=== PATIENT | female | born 1950 | race Caucasian/White ===

== ENCOUNTER → 2017-07-26 | Outpatient (CLI) | payer OTHER | LOC: FIMAGING 10:44 | PROVIDERS: ATTEND Internal Medicine | DX: Z13.820 Encounter for screening for osteoporosis (principal); M85.80 Other specified disorders of bone density and structure, unspecified site ==

== ENCOUNTER → 2017-08-09 | Outpatient (CLI) | payer OTHER ==
[~2017-08-09] MED LIST: IOPAMIDOL (ISOVUE-300) 100 ML BTL ONE
== END ==
LOC: FIMAGING 11:41
PROVIDERS: ATTEND Internal Medicine
DX: R59.0 Localized enlarged lymph nodes (principal); R18.8 Other ascites; R91.1 Solitary pulmonary nodule; K57.90 Diverticulosis of intestine, part unspecified, without perforation or abscess without bleeding
CPT/HCPCS: 74177; Q9967

== ENCOUNTER → 2017-08-16 | Outpatient (CLI) | payer OTHER ==
[~2017-08-16] MED LIST changes: -IOPAMIDOL (ISOVUE-300) 100 ML BTL ONE; +LIDOCAINE 1% 300 MG/30 ML SDV ONE
== END ==
LOC: FIMAGING 10:52
PROVIDERS: ATTEND Internal Medicine
PROC: 07BJ3ZX Excision of Left Inguinal Lymphatic, Percutaneous Approach, Diagnostic (ICD-10-PCS; principal; 2017-08-16)
DX: R59.0 Localized enlarged lymph nodes (principal)
CPT/HCPCS: 88184-90; 88185-91

== ENCOUNTER → 2017-09-12 | Outpatient (CLI) | payer OTHER | LOC: FIMAGING 11:19 | PROVIDERS: ATTEND Internal Medicine Hematology & Oncology | DX: K59.00 Constipation, unspecified (principal); M46.96 Unspecified inflammatory spondylopathy, lumbar region; M46.97 Unspecified inflammatory spondylopathy, lumbosacral region; C91.10 Chronic lymphocytic leukemia of B-cell type not having achieved remission ==

== ENCOUNTER → 2017-09-16 | Outpatient (CLI) | payer OTHER | LOC: FIMAGING 11:27 | PROVIDERS: ATTEND Internal Medicine Hematology & Oncology | PROC: 0W9G3ZX Drainage of Peritoneal Cavity, Percutaneous Approach, Diagnostic (ICD-10-PCS; principal; 2017-09-16) | DX: R18.8 Other ascites (principal); C91.10 Chronic lymphocytic leukemia of B-cell type not having achieved remission ==

== ENCOUNTER → 2017-11-19 | Outpatient (CLI) | payer OTHER | LOC: FIMAGING 07:57 | DX: R18.8 Other ascites (principal); C91.10 Chronic lymphocytic leukemia of B-cell type not having achieved remission; Z85.3 Personal history of malignant neoplasm of breast ==

== ENCOUNTER → 2017-12-02 | Outpatient (CLI) | payer OTHER | LOC: FIMAGING 09:41 | PROVIDERS: ATTEND Internal Medicine Gastroenterology | PROC: CF141ZZ Planar Nuclear Medicine Imaging of Gallbladder using Technetium 99m (Tc-99m) (ICD-10-PCS; principal; 2017-12-02) | DX: R10.9 Unspecified abdominal pain (principal) | CPT/HCPCS: 78227; A9537 ==

== ENCOUNTER → 2017-12-12 | Outpatient (CLI) | payer OTHER ==
[~2017-12-12] MED LIST changes: +IOPAMIDOL (ISOVUE-300) 100 ML BTL ONE; -LIDOCAINE 1% 300 MG/30 ML SDV ONE
== END ==
LOC: FIMAGING 09:55
PROVIDERS: ATTEND Internal Medicine Gastroenterology
DX: R18.8 Other ascites (principal); R59.0 Localized enlarged lymph nodes; K82.9 Disease of gallbladder, unspecified
CPT/HCPCS: 74177; Q9967

== ENCOUNTER → 2017-12-18 | Outpatient (CLI) | payer OTHER ==
[~2017-12-18] MED LIST changes: -IOPAMIDOL (ISOVUE-300) 100 ML BTL ONE; +LIDOCAINE 1% 300 MG/30 ML SDV ONE
== END ==
LOC: FIMAGING 09:25
PROVIDERS: ATTEND Internal Medicine Gastroenterology
PROC: 0W9F30Z Drainage of Abdominal Wall with Drainage Device, Percutaneous Approach (ICD-10-PCS; principal; 2017-12-18)
DX: R18.8 Other ascites (principal)

== ENCOUNTER 2017-12-24 11:32 | Emergency (ER) | payer OTHER ==
--- NOTE | 2017-12-24 12:44 | EDPHY ---
H & P Time Seen by Provider: 12/24/17 12:14 HPI/ROS: Chief complaint. Left leg swelling HPI. A 67-year-old female left leg swelling for the past 2 weeks. She has bilateral leg swelling but the left is more swollen. Some mid left thigh discomfort. No chest discomfort or shortness of breath. No fever cough. No history of PE or DVT. Patient had an outpatient ultrasound today by her senior solutions workflow consultant and it shows a DVT. Patient is referred to our department for treatment ROS Constitutional. no fever/chills, no weakness Eyes. no problems with vision ENT. no sore throat, no nasal drainage Cardiovascular. no chest pain Respiratory. no shortness of breath, no cough Abdominal. no abdominal pain, no nausea/vomiting, no diarrhea . no problems urinating MS. Left lower extremity pain and swelling Skin. no rash Lymph. no swollen glands Neuro. no headache, no dizziness, no difficulty walking or with speech Past Medical/Surgical History: Leukemia Social History: Single, nonsmoker, no alcohol Smoking Status: Former smoker Physical Exam: General Appearance: Alert well-developed female mild distress vital signs stable Eyes: Pupils equal and round no pallor or injection. ENT, Mouth: Mucous membranes are moist. Respiratory: There are no retractions, lungs are clear to auscultation. Cardiovascular: Regular rate and rhythm. Gastrointestinal: Abdomen is soft and nontender, no masses, bowel sounds normal. Neurological: Awake and alert, sensory and motor exams grossly normal. Skin: Warm and dry, no rashes. Musculoskeletal: Neck is supple nontender. Extremities left leg is swollen. Good pulses. Mild tenderness to palpation medial left thigh. Psychiatric: Patient is oriented X 3, there is no agitation. Constitutional: Initial Vital Signs Temperature (C) 36.6 C 12/24/17 11:38 Heart Rate 70 12/24/17 11:38 Respiratory Rate 16 12/24/17 11:38 Blood Pressure 102/78 12/24/17 11:38 O2 Sat (%) 97 12/24/17 11:38 O2 Delivery Mode Room Air Allergies/Adverse Reactions: adhesive tape Allergy (Intermediate, Verified 12/24/17 11:37) Hives scallops Allergy (Severe, Uncoded 12/24/17 11:37) ANTIBIOTICS Allergy (Unknown, Uncoded 12/24/17 11:37) CODIENE Allergy (Unknown, Uncoded 12/24/17 11:37) PCN Allergy (Unknown, Uncoded 12/24/17 11:37) Home Medications: Medication Instructions Recorded Aspirin 12/24/17 Atorvastatin Calcium 12/24/17 Citalopram 12/24/17 Co Q-10 12/24/17 HCTZ (*) 12/24/17 Rivaroxaban [Xarelto 15mg (*)] 15 mg PO BID #42 tab 12/24/17 Vitamin D3 12/24/17 Medical Decision Making - Diagnostics Imaging Results: Imaging Impressions Extremity Venous Study 12/24/17 10:15 Impression: 1. Short segment of nonocclusive deep venous thrombosis in the left mid femoral vein. Mobile nature suggest the thrombus is acute rather than old. 2. No deep venous thrombosis in the right lower extremity. Findings discussed with physician, Dr. Mor Oliveira on December 24, 2017 at 1113 hours. Ultrasound reviewed by me shows nonocclusive DVT in the left mid femoral vein Procedures: Xarelto in the emergency department Renal function is normal so no change in Xarelto doses necessary ED Course/Re-evaluation: Patient and I discussed imaging studies, treatment plan including criteria for return importance of follow-up and further evaluation. She expresses understanding and agreement Differential Diagnosis: I considered DVT, PE, congestive heart failure - Data Points Laboratory Results: Laboratory Results 12/24/17 12:43 12/24/17 12:43 12/24/17 12/24/17 12/24/17 12:43 12:43 12:43 WBC 8.72 10^3/uL 10^3/uL (3.80-9.50) RBC 4.87 10^6/uL 10^6/uL (4.18-5.33) Hgb 12.9 g/dL g/dL (12.6-16.3) Hct 39.2 % % (38.0-47.0) MCV 80.5 fL L fL (81.5-99.8) MCH 26.5 pg L pg (27.9-34.1) MCHC 32.9 g/dL g/dL (32.4-36.7) RDW 14.7 % % (11.5-15.2) Plt Count 301 10^3/uL 10^3/uL (150-400) MPV 8.3 fL L fL (8.7-11.7) Neut % (Auto) 36.7 % L % (39.3-74.2) Lymph % (Auto) 50.0 % H % (15.0-45.0) [place] % (Auto) 7.9 % % (4.5-13.0) Eos % (Auto) 4.8 % % (0.6-7.6) Baso % (Auto) 0.5 % % (0.3-1.7) Nucleat RBC Rel Count 0.0 % % (0.0-0.2) Absolute Neuts (auto) 3.20 10^3/uL 10^3/uL (1.70-6.50) Absolute Lymphs (auto) 4.36 10^3/uL H 10^3/uL (1.00-3.00) Absolute Monos (auto) 0.69 10^3/uL 10^3/uL (0.30-0.80) Absolute Eos (auto) 0.42 10^3/uL H 10^3/uL (0.03-0.40) Absolute Basos (auto) 0.04 10^3/uL 10^3/uL (0.02-0.10) Absolute Nucleated RBC 0.00 10^3/uL 10^3/uL (0-0.01) Immature Gran % 0.1 % % (0.0-1.1) Immature Gran # 0.01 10^3/uL 10^3/uL (0.00-0.10) Platelet Estimate Pending PT 13.2 SEC SEC (12.0-15.0) INR 0.98 (0.83-1.16) APTT 27.1 SEC SEC (23.0-38.0) Sodium 135 mEq/L mEq/L (135-145) Potassium 3.8 mEq/L mEq/L (3.3-5.0) Chloride 95 mEq/L L mEq/L (97-110) Carbon Dioxide 31 mEq/l mEq/l (22-31) Anion Gap 9 mEq/L mEq/L (8-16) BUN 15 mg/dL mg/dL (7-23) Creatinine 0.7 mg/dL mg/dL (0.6-1.0) Estimated GFR > 60 Glucose 88 mg/dL mg/dL (70-100) Calcium 8.8 mg/dL mg/dL (8.5-10.4) NT-Pro-B Natriuret Pep Pending TSH Pending Medications Given: Discontinued Medications Rivaroxaban (Xarelto) 15 mg PO EDNOW ONE Stop: 12/24/17 12:48 Last Admin: 12/24/17 12:50 Dose: 15 mg Departure - Departure Disposition: Home, Routine, Self-Care Clinical Impression: Dvt femoral (deep venous thrombosis) Qualifiers: Chronicity: acute Laterality: left Qualified Code(s): I82.412 - Acute embolism and thrombosis of left femoral vein Condition: Good Instructions: Deep Vein Thrombosis (ED) Additional Instructions: Keep leg elevated as much as possible next 2-3 days. Activity as tolerated Xarelto 1 pill twice daily with food. Follow up with your regular physician for further medication. Return for worsening symptoms including chest discomfort or trouble breathing. Referrals: Sandy Swan MD [Primary Care Provider] - 2-3 days, call for appt. Prescriptions: Rivaroxaban [Xarelto 15mg (*)] 15 mg PO BID #42 tab
[2017-12-24] MEDS ORDERED: RIVAROXABAN 15 MG TAB PO ONE (12:47)
[2017-12-24 12:53] LABS: PLATELET COUNT 301 10^3/uL (150-400)
[2017-12-24 13:01] LABS: INR 0.98 (0.83-1.16); PROTIME(PATIENT) 13.2 SEC (12.0-15.0)
[2017-12-24 13:31] VITALS: BP 102/67
== END 2017-12-24 13:28 | disposition home or self-care (01) ==
DX: I82.412 Acute embolism and thrombosis of left femoral vein (principal); Z79.82 Long term (current) use of aspirin; Z87.891 Personal history of nicotine dependence

== ENCOUNTER → 2018-01-23 | Outpatient (CLI) | payer OTHER | LOC: FIMAGING 11:44 | PROVIDERS: ATTEND Nurse Practitioner | PROC: 0W9G3ZZ Drainage of Peritoneal Cavity, Percutaneous Approach (ICD-10-PCS; principal; 2018-01-23) | DX: C91.10 Chronic lymphocytic leukemia of B-cell type not having achieved remission (principal); R18.8 Other ascites ==

== ENCOUNTER → 2018-02-07 | Outpatient (CLI) | payer OTHER | LOC: FIMAGING 13:31 | PROVIDERS: ATTEND Internal Medicine Hematology & Oncology | PROC: 0W9G30Z Drainage of Peritoneal Cavity with Drainage Device, Percutaneous Approach (ICD-10-PCS; principal; 2018-02-07) | DX: R18.8 Other ascites (principal) ==